=== PATIENT | female | born 1995 | race Caucasian/White ===

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

== ENCOUNTER 2018-09-01 22:14 | Emergency (ER) | payer BC ==
[~2018-09-01] VITALS: Ht 149.9 cm; Wt 88.3 kg
[~2018-09-01 22:14] MED LIST changes: +ELEC100080 PO; +ONDA4TAB14 PO
[2018-09-01 22:20] VITALS: Ht 149.9 cm; Wt 88.3 kg
[2018-09-01] MEDS ORDERED: morphine 4 MG/ML VIAL IV STA (23:22)
[2018-09-01] MEDS ORDERED: ONDANSETRON 4 MG INJ IV STA (23:22)
[2018-09-01] MEDS ORDERED: SOD CHLORIDE 0.9% 2,000 ML IV STA (23:22)
[2018-09-02] MEDS ORDERED: ONDA8TAB14 PO (00:55)
--- NOTE | 2018-09-02 00:58 | ERD ---
ER Documentation Chief Complaint Chief Complaint post extraction 4 wisdom teeth this am, c/o bleeding gums/vomiting HPI 22-year-old female presents after having her wisdom teeth removed today. She had bilateral upper and lower wisdom teeth removed. She has a history of type 1 diabetes and has insulin pump. Her blood sugars been high and she is unable to drink fluids due to the pain. She also has been having some oozing from her wounds. She vomited blood-tinged saliva. She also has some bleeding from her nose but that stopped. She has been prescribed [place] 10 mg for pain. ROS All systems reviewed and are negative except as per history of present illness. Medications Home Meds Active Scripts Ondansetron (Ondansetron Odt) 8 Mg Tab.rapdis, 8 MG PO Q6H PRN for NAUSEA AND/OR VOMITING, #10 TAB Prov:ELIE CORONEL MD 09/02/18 Electrolyte,Oral (Pedialyte) 1,000 Ml Solution, 100 ML PO Q6 PRN for VOMITTING for 14 Days, ML Prov:SCAR PATRICIA PA-C 08/15/16 Ondansetron (Ondansetron Odt) 4 Mg Tab.rapdis, 4 MG PO Q6H PRN for NAUSEA AND/OR VOMITING, #10 TAB Prov:SCAR PATRICIA PA-C 08/15/16 Lorazepam* (Ativan*) 0.5 Mg Tablet, 0.5 MG PO Q8, #10 TAB Prov:FARIBA,VENANCIO 06/04/16 Sulfamethoxazole-Trimethoprim* (Bactrim* DS) 800-160 Mg Tab, 1 TAB PO BID for 10 Days, TAB Prov:LAYNE HUNT DO 01/03/15 Cephalexin* (Keflex*) 500 Mg Capsule, 500 MG PO QID for 10 Days, CAP Prov:LAYNE HUNT DO 01/03/15 Reported Medications Insulin Glargine,Hum.rec.anlog (Lantus) 100 U/Ml Vial, 25 UNITS SC HS, 0 Refills 07/30/10 Insulin Lispro (Humalog) 100 U/Ml Cartridge, UNITS SC AC/HS, 0 Refills 07/30/10 Allergies Allergies: Coded Allergies: No Known Allergy (Verified , 3/4/17) PMhx/Soc Medical and Surgical Hx: pt denies Surgical Hx History of Surgery: No Anesthesia Reaction: No Hx Neurological Disorder: No Hx Respiratory Disorders: No Hx Cardiac Disorders: No Hx Psychiatric Problems: No Hx Miscellaneous Medical Probl: Yes (Type 1 diabetes) Hx Alcohol Use: No Hx Substance Use: No Hx Tobacco Use: No FmHx Family History: No diabetes, No coronary disease, No other Physical Exam Vitals Vital Signs Date Temp Pulse Resp B/P (MAP) Pulse Ox O2 O2 Flow FiO2 Time Delivery Rate 09/01/18 98.9 81 18 150/94 97 22:20 (112) Physical Exam Const: No acute distress Head: Atraumatic Eyes: Normal Conjunctiva ENT: Normal External Ears, Nose and Mouth. Scant oozing from lower bilateral wisdom tooth extraction site with suture in place. Airway patent. No erythema . Generalized facial swelling consistent with wisdom tooth removal.. Neck: Full range of motion. No meningismus. Resp: Clear to auscultation bilaterally Cardio: Regular rate and rhythm, no murmurs Abd: Soft, non tender, non distended. Normal bowel sounds Skin: No petechiae or rashes Back: No midline or flank tenderness Ext: No cyanosis, or edema Neur: Awake and alert Psych: Normal Mood and Affect Result Diagram: 09/01/18232809/01/182328 Results 24 hrs Laboratory Tests Test 09/01/18 23:29 09/01/18 23:32 White Blood Count 19.8 10^3/ul Red Blood Count 4.90 10^6/ul Hemoglobin 14.2 g/dl Hematocrit 42.5 % Mean Corpuscular Volume 86.7 fl Mean Corpuscular Hemoglobin 29.0 pg Mean Corpuscular Hemoglobin Concent 33.4 g/dl Red Cell Distribution Width 12.9 % Platelet Count 449 10^3/UL Mean Platelet Volume 10.3 fl Immature Granulocytes % 0.500 % Neutrophils % 89.1 % Lymphocytes % 6.2 % Monocytes % 3.7 % Eosinophils % 0.2 % Basophils % 0.3 % Nucleated Red Blood Cells % 0.0 /100WBC Immature Granulocytes # 0.090 10^3/ul Neutrophils # 17.6 10^3/ul Lymphocytes # 1.2 10^3/ul Monocytes # 0.7 10^3/ul Eosinophils # 0.0 10^3/ul Basophils # 0.1 10^3/ul Nucleated Red Blood Cells # 0.0 10^3/ul Sodium Level 139 mmol/L Potassium Level 4.3 mmol/L Chloride Level 105 mmol/L Carbon Dioxide Level 20 mmol/L Anion Gap 14 Blood Urea Nitrogen 8 mg/dl Creatinine 0.51 mg/dl Est Glomerular Filtrat Rate mL/min > 60 mL/min Glucose Level 234 mg/dl Calcium Level 9.9 mg/dl Bedside Glucose 212 mg/dL Current Medications Medications Dose Sig/Mayuri Start Time Status Last (Trade) Ordered Route PRN Stop Time Admin Dose Reason Admin Sodium 2,000 ml @ Q1H STAT 09/01/18 DC 09/01/18 Chloride 2,000 mls/hr IV 23:22 09/02/18 23:36 00:21 Morphine 4 mg ONCE STAT 09/01/18 DC 09/01/18 Sulfate IV 23:09/01/18 23:37 (morphine) 23:24 Ondansetron 4 mg ONCE STAT 09/01/18 DC 09/01/18 HCl (Zofran IV 23:09/01/18 23:37 Inj) 23:24 Procedures/MDM Blood sugar is 234. Patient. Requesting IV fluids given her history of diabetes and inability to take p.o.'s. She is given 1 L normal saline IV. Patient has a leukocytosis of 19, possibly stress reaction or postoperative reaction. She was given morphine 4 mg IV, Zofran 4 mg IV. Patient had improved pain after observation treatment. Gauze was applied for compression and patient had no further oozing from her wounds. Patient presents with vomiting and slight oozing from her wound status post wisdom tooth extraction today. She may have be having vomiting either from swallowing blood or possibly from the [place]. She will be discharged home with recommendations for Tylenol initially for pain and [place] half dose for pain. She will be given Zofran as well for vomiting. She was given instructions on applying pressure for any oozing from her e xtraction sites. The patient was stable with no new complaints during the ER course. Clinically, there is no current evidence to suggest meningitis, sepsis, acute abdomen, pneumonia, stroke, acute coronary syndrome, pulmonary embolism, aortic dissection or any other emergent condition appearing to require further evaluation or hospitalization. Patient counseled regarding my diagnostic impression and care plan. Prior to discharge all questions answered. Pt agrees with treatment plan and understands strict return precautions. Pt is instructed to follow up with primary care provider within 24-48 hours. Precautionary instructions provided including instructions to return to the ER if not impr oving or for any worsening or changing symptoms or concerns. Disclaimer: Inadvertent spelling and grammatical errors are likely due to EHR/dictation software use and do not reflect on the overall quality of patient care. Also, please note that the electronic time recorded on this note does not necessarily reflect the actual time of the patient encounter. Departure Diagnosis: Primary Impression: Post-op bleeding Surgical complication system/body Area: respiratory system Procedure type: non-respiratory system Qualified Codes: J95.831 - Postprocedural hemorrhage of a respiratory system organ or structure following other procedure Additional Impression: Post-op pain Condition: Stable Patient Instructions: Post Op Wound Check, Bleeding Additional Instructions: Apply pressure for bleeding for 5 minutes. Drink plenty fluids at home. Follow-up with primary doctor or dentist as scheduled. Recheck otherwise for fevers, vomiting, new or worsening symptoms. ELIE CORONEL MD Sep 02, 2018 00:58
[2018-09-02 01:16] VITALS: BP 137/86; PULSE 106; RESP 18
== END 2018-09-02 01:17 | disposition home or self-care (01) ==
LOC: FTE 22:14
DX: J95.831 Postprocedural hemorrhage of a respiratory system organ or structure following other procedure (principal); E10.9 Type 1 diabetes mellitus without complications; G89.18 Other acute postprocedural pain; Z79.4 Long term (current) use of insulin
CPT/HCPCS: 36415; 80048; 82962; 85025; 96374; 96375; 99284; J2270; J2405; J7030

== ENCOUNTER 2018-11-26 16:46 | Emergency (ER) | payer BC ==
[~2018-11-26] VITALS: Ht 149.9 cm; Wt 86.0 kg
[~2018-11-26 16:46] MED LIST changes: +ACET500C5 PO; +ONDA8TAB14 PO
[2018-11-26 16:53] VITALS: Ht 149.9 cm; Wt 86.0 kg
[2018-11-26] MEDS ORDERED: SOD CHLORIDE 0.9% 1,000 ML IV STA (18:52)
[2018-11-26] MEDS ORDERED: ONDANSETRON 4 MG INJ IV STA (18:52)
[2018-11-26 20:36] VITALS: BP 127/92; PULSE 75; RESP 17
== END 2018-11-26 20:36 | disposition home or self-care (01) ==
LOC: E/R 16:46 → FTE 20:36
DX: R11.10 Vomiting, unspecified (principal); R19.7 Diarrhea, unspecified; E10.69 Type 1 diabetes mellitus with other specified complication; Z79.4 Long term (current) use of insulin
CPT/HCPCS: 36415; 76705; 80053; 81003; 82962; 83690; 84703; 85025; 96374; 99285; J2405; J7030